=== PATIENT | female | born 1990 | race Caucasian/White ===

== ENCOUNTER 2018-04-12 12:53 | Emergency (ER) | payer SELFPAY ==
[~2018-04-12] VITALS: Ht 162.6 cm; Wt 45.0 kg
[2018-04-12] MEDS ORDERED: LORAZEPAM 2MG/ML CPJ IV STA (13:07)
[2018-04-12] MEDS ORDERED: SODIUM CHLORIDE 0.9% 1,000 ML IV ONE ×2 (13:07→16:45)
[2018-04-12 14:26] LABS: BASOPHILS % 0.3 % (0.0-2.0); EOSINOPHILS % 0.1 % (0.0-5.0); HEMATOCRIT. 34.4 % (36.0-48.0); HEMOGLOBIN. 11.5 g/dL (12.0-16.0); LYMPHOCYTES % 16.7 % (20.0-50.0); MEAN CORPUSCULAR VOLUME 87.1 fL (81.0-99.0); MEAN PLATELET VOLUME 7.7 fl (7.4-10.4); MONOCYTES % 8.6 % (2.0-8.0); NEUTROPHILS % 74.3 % (40.0-76.0); PLATELET 264 x1000/uL (130-400); RED BLOOD CELL COUNT 3.95 mill/uL (4.2-5.4); RED CELL DISTRIBUTION WIDTH 15.7 % (11.6-14.6)
[2018-04-12 14:33] LABS: CHLORIDE 105 mEq/L (98-107)
[2018-04-12 14:37] LABS: ETHANOL BLOOD < 10 mg/dL
[2018-04-12 14:41] LABS: CREATINE KINASE 69 IU/L (26-192)
[2018-04-12 14:54] LABS: HCG SCREEN NEGATIVE
[2018-04-12] MEDS ORDERED: LORAZEPAM 0.5MG TABLET PO ONE (16:45)
[2018-04-12 16:47] LABS: CLARITY URINE CLEAR (CLEAR); COLOR URINE YELLOW (YELLOW); KETONES URINE NEGATIVE (NEGATIVE); LEUKOCYTE ESTERASE URINE NEGATIVE (NEGATIVE); NITRITE URINE NEGATIVE (NEGATIVE); OCCULT BLOOD URINE NEGATIVE (NEGATIVE); PROTEIN URINE NEGATIVE (NEGATIVE); SPECIFIC GRAVITY URINE 1.013 (1.005-1.030); UROBILINOGEN URINE 0.2 E.U./dL (0.2-1.0)
[2018-04-12 16:59] LABS: *BARBITURATES SCREEN URINE NEGATIVE (NEGATIVE); *COCAINE SCREEN URINE NEGATIVE (NEGATIVE); METHADONE URINE SCREEN NEGATIVE (NEGATIVE)
[2018-04-12 17:00] LABS: PHENCYCLIDINE URINE SCREEN NEGATIVE (NEGATIVE)
[2018-04-12 17:13] LABS: *AMPHETAMINES SCREEN URINE PRESUMTIVE POSITIVE (NEGATIVE); *BENZODIAZEPINES SCREEN URINE PRESUMTIVE POSITIVE (NEGATIVE); CANNABINOID URINE SCREEN PRESUMTIVE POSITIVE (NEGATIVE); OPIATES URINE SCREEN PRESUMTIVE POSITIVE (NEGATIVE)
[2018-04-12 21:30] VITALS: BP 119/74
== END 2018-04-13 03:03 | disposition home or self-care (01) ==
LOC: ER 13:01
DX: T43.621A Poisoning by amphetamines, accidental (unintentional), initial encounter (principal); Y92.9 Unspecified place or not applicable; F15.93 Other stimulant use, unspecified with withdrawal; R53.1 Weakness; F12.10 Cannabis abuse, uncomplicated; F19.10 Other psychoactive substance abuse, uncomplicated
CPT/HCPCS: 36415; 71045; 80053; 80305; 80307; 80329; 81003; 82550; 84703; 85025; 93005; 96361; 96374; 99285; G0482; J2060; J7030